=== PATIENT | female | born 1965 | race Caucasian/White ===

== ENCOUNTER 2021-01-04 12:31 | Emergency (ER) | payer OTHER ==
[~2021-01-04] VITALS: Ht 167.6 cm; Wt 50.7 kg
[2021-01-04 12:55] VITALS: BP 111/71
[2021-01-04] MEDS ORDERED: AZIT250T6 PO (13:27)
--- NOTE | 2021-01-04 13:28 | PHYS DOC ---
Past History Past Surgical History: Other Additional Past Surgical Histo: foot surgery Alcohol Use: None General Adult EDM: Chief Complaint: FINGER INJURY HPI: HPI: Patient is a 55 year old female who presents with right finger swelling after being scratched by a cat yesterday. Scratch was over the PIP of the right 2nd digit. Has gotten red and more tender over the course of the day. Swelling is primarily over the dorsal surface of the hand. No swelling along the flexor anthony faces. She has some mild pain with range of motion, but is able to flex and extend her finger fully. Cat is up-to-date on shots. Review of Systems: Review of Systems: Constitutional: Denies fever or chills Eyes: Denies change in visual acuity HENT: Denies nasal congestion or sore throat Respiratory: Denies cough or shortness of breath Cardiovascular: Denies chest pain or edema GI: Denies abdominal pain, nausea, vomiting, bloody stools or diarrhea : Denies dysuria Musculoskeletal: Denies back pain or joint pain Integument: Rash over 2nd finger on right hand Neurologic: Denies headache, focal weakness or sensory changes Endocrine: Denies polyuria or polydipsia Lymphatic: Denies swollen glands Psychiatric: Denies depression or anxiety Allergies: Allergies: Allergies Coded Allergies Type Severity Reaction Last Updated Verified Penicillins Allergy Unknown 01/04/21 Yes Physical Exam: PE: Constitutional: Well developed, well nourished, no acute distress, non-toxic appearance. [] HENT: Normocephalic, atraumatic, Eyes conjunctiva normal, no discharge. [] Neck: Normal range of motion, no tenderness, supple, no stridor. [] Cardiovascular:Heart rate regular rhythm, no murmur [] Lungs & Thorax: Normal work of breathing Skin: Right 2nd finger with some mild swelling, erythema, and tenderness over the dorsal aspect of the PIP. No swelling over the flexor tendons. Normal range of motion through full flexion/extension of the finger. Good distal cap refill. Small scratches over the dorsal MCP, and over the distal volar wrist. Extremities: No tenderness, no cyanosis, no clubbing, ROM intact, no edema. [] Neurologic: Alert and oriented X 3, normal motor function, normal sensory function, no focal deficits noted. [] Psychologic: Affect normal, judgement normal, mood normal. [] Current Patient Data: Vital Signs: Vital Signs Date Time Temp Pulse Resp B/P (MAP) Pulse Ox O2 Delivery O2 Flow Rate FiO2 01/04/21 12:55 98.1 88 16 111/71 (84) 98 EKG: EKG: [] Radiology/Procedures: Radiology/Procedures: [] Heart Score: C/O Chest Pain: No Risk Factors: Risk Factors: DM, Current or recent (<one month) smoker, HTN, HLP, family history of CAD, obesity. Risk Scores: Score 0 - 3: 2.5% MACE over next 6 weeks - Discharge Home Score 4 - 6: 20.3% MACE over next 6 weeks - Admit for Clinical Observation Score 7 - 10: 72.7% MACE over next 6 weeks - Early Invasive Strategies Course & Med Decision Making: Course & Med Decision Making Pertinent Labs and Imaging studies reviewed. (See chart for details) Patient a 55-year-old female who presents with evidence of a dorsal finger cellulitis after a cat scratch. She is penicillin allergic. Will prescribe a 5-day course of azithromycin. No evidence of flexor tenosynovitis or abscess. tdap utd Dragon Disclaimer: Dragon Disclaimer: This electronic medical record was generated, in whole or in part, using a voice recognition dictation system. Departure Departure: Impression: Primary Impression: Cat scratch of right hand with infection Disposition: 01 HOME / SELF CARE / HOMELESS Condition: STABLE Referrals: GÓMEZ LAY DO, [facility] (PCP) Scripts Azithromycin (AZITHROMYCIN TABLET) 250 Mg Tablet 250 MG PO DAILY for ANTI-BIOTIC for 5 Days, #6 TAB 0 Refills Take 2 tabs on day 1, followed by 1 tab daily. Please finish all. Prov: ROQUE CAMPOS MD 01/04/21 ROQUE CAMPOS MD Jan 04, 2021 13:28
== END 2021-01-04 13:35 | disposition home or self-care (01) ==
LOC: ER 12:31
DX: S60.511A Abrasion of right hand, initial encounter (principal); Z88.0 Allergy status to penicillin; W55.03XA Scratched by cat, initial encounter; Y93.89 Activity, other specified; Y92.89 Other specified places as the place of occurrence of the external cause; Y99.8 Other external cause status
CPT/HCPCS: 99283-25

== ENCOUNTER 2021-02-13 13:58 | Emergency (ER) | payer OTHER ==
[~2021-02-13] VITALS: Ht 167.6 cm; Wt 49.2 kg
[~2021-02-13 13:58] MED LIST: AZIT250T6 PO
[2021-02-13] MEDS ORDERED: NEOMY/BACITR/POLYMYXIN OINT PACKET. TP ONE (14:15)
[2021-02-13] MEDS ORDERED: [UNRECOGNIZED DRUG - CODE] PO (14:25)
--- NOTE | 2021-02-13 14:25 | PHYS DOC ---
Past History Past Surgical History: Other Additional Past Surgical Histo: foot surgery Alcohol Use: None General Adult EDM: Chief Complaint: HAND PROBLEM HPI: HPI: Patient is a 55-year-old female presenting with a cat bite to her right hand that occurred around 10 AM today. 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 She reports that her last tetanus shot was within the last 5 years. She reports a throbbing pain in her right hand around her thumb that does not radiate, along with some swelling. She reports she is able to move all her fingers without difficulty. Review of Systems: Review of Systems: Constitutional: Denies fever or chills Eyes: Denies redness or eye pain HENT: Denies nasal congestion or sore throat Respiratory: Denies cough or shortness of breath Cardiovascular: Denies chest pain or palpitations GI: Denies abdominal pain, nausea, or vomiting : Denies dysuria or hematuria Musculoskeletal: Denies back pain or joint pain Integument: Denies rash or skin lesions Neurologic: Denies headache, focal weakness or sensory changes Complete systems were reviewed and found to be within normal limits, except as documented in this note. Current Medications: Current Meds: Current Medications Medications (Trade) Dose Ordered Sig/Donovan Start Time Stop Time Status Last Admin Dose Admin Neomycin/ Polymyxin/ Bacitracin (Triple Antibiotic Ointment) 1 pkt 1X ONCE 02/13/21 14:15 02/13/21 14:16 DC 02/13/21 14:15 1 PKT Allergies: Allergies: Allergies Coded Allergies Type Severity Reaction Last Updated Verified Penicillins Allergy Unknown Hives 02/13/21 Yes Physical Exam: PE: Constitutional: Well developed, well nourished, no acute distress, non-toxic appearance HENT: Normocephalic, atraumatic Eyes: PERRL, EOMI, conjunctiva normal, no discharge Neck: Normal range of motion, no tenderness, supple Lungs & Thorax: No respiratory distress, equal chest rise and fall Abdomen: Soft, no tenderness Skin: Warm, dry, no erythema, no rash Back: No tenderness, no CVA tenderness Extremities: 3-4 skin punctures over 1st metacarpal on right side. Some swelling, erythema, and tenderness over this area. ROM intact b/l. Neurovascular intact. No drainage from puncture wounds noted. Neurologic: Alert and oriented X 3, normal motor function, normal sensory f unction, no focal deficits noted Psychologic: Affect normal, judgment normal Heart Score: C/O Chest Pain: No Course & Med Decision Making: Course & Med Decision Making Patient is a 55-year-old female presenting with a cat bite to her right hand. Cat is up-to-date on rabies vaccinations and the patient is up-to-date on tetanus. Wound care was performed and antibiotic gel was applied to the area. Will provide prescription for moxifloxacin for course of 7 to 10 days due to penicillin allergy. Patient stable for discharge with outpatient follow-up with PCP. Discussed findings and plan with patient, who acknowledges understanding and agreement. Marcelinoon Disclaimer: Griffin Disclaimer: This electronic medical record was generated, in whole or in part, using a voice recognition dictation system. Departure Departure: Impression: Primary Impression: Cat bite of right hand Qualified Codes: S61.451A - Open bite of right hand, initial encounter; W55.01XA - Bitten by cat, initial encounter Disposition: HOME / SELF CARE / HOMELESS Condition: STABLE Referrals: GÓMEZ LAY DO, [facility] (PCP) Patient Instructions: Animal Bite, [id number] Additional Instructions: Do not soak your wound. You may shower. Clean wound daily with soap and water. Change dressing 2 times daily. Use over the counter antibiotic ointment with each dressing change. Scripts Moxifloxacin Hcl (MOXIFLOXACIN HCL) 400 Mg Tablet 400 MG PO DAILY for Cat Bite for 7 Days, #7 TAB Prov: SOWMYA MAS DO 02/13/21 SOWMYA MAS DO Feb 13, 2021 14:25
[2021-02-13 14:35] VITALS: BP 107/64
== END 2021-02-13 14:36 | disposition home or self-care (01) ==
LOC: ER 13:58
DX: S61.031A Puncture wound without foreign body of right thumb without damage to nail, initial encounter (principal); Z88.0 Allergy status to penicillin; W55.01XA Bitten by cat, initial encounter; Y93.89 Activity, other specified; Y92.89 Other specified places as the place of occurrence of the external cause; Y99.8 Other external cause status
CPT/HCPCS: 99283

== ENCOUNTER 2021-05-28 08:46 | Emergency (ER) | payer OTHER ==
[~2021-05-28] VITALS: Ht 167.6 cm; Wt 49.2 kg
[~2021-05-28 08:46] MED LIST changes: +[UNRECOGNIZED DRUG - CODE] PO
[2021-05-28 09:03] VITALS: BP 117/77
[2021-05-28] MEDS ORDERED: [UNRECOGNIZED DRUG - CODE] PO (09:45)
--- NOTE | 2021-05-28 09:45 | PHYS DOC ---
Past History Past Medical History: No Pertinent History Past Surgical History: Other Additional Past Surgical Histo: foot surgery Smoking: Cigarettes Alcohol Use: None Drug Use: None General Adult EDM: Chief Complaint: ANIMAL BITE HPI: HPI: Patient is a 55 year old female who presents with cat bite over the MCP joint of digit 2 on the left hand. 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 After the injury, she states she washed it thoroughly with soap and water and placed antibiotic ointment on it. Today, it is red and somewhat swollen. All of the animals there are up-to-date on vaccinations. Patient has no other complaints at this time. Review of Systems: Review of Systems: ROS negative or noncontributory except as mentioned in HPI. Allergies: Allergies: Allergies Coded Allergies Type Severity Reaction Last Updated Verified Penicillins Allergy Unknown Hives 02/13/21 Yes Physical Exam: PE: Constitutional: Well developed, well nourished, no acute distress, non-toxic appearance. HENT: Normocephalic, atraumatic, bilateral external ears normal, nose normal. Eyes: EOMI, conjunctiva normal, no discharge. Neck: Normal range of motion, no stridor. Skin: Multiple scabbed abrasions and puncture wounds noted on both hands, left digit 2 MCP joint erythematous and mildly swollen. Skin otherwise warm, dry, no rash. 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 No tenderness, no cyanosis, no clubbing, ROM intact. Current Patient Data: Vital Signs: Vital Signs Date Time Temp Pulse Resp B/P (MAP) Pulse Ox O2 Delivery O2 Flow Rate FiO2 05/28/21 09:03 98.1 114 16 117/77 (90) 96 Room Air Patient hemodynamically stable on d/c. Radiology/Procedures: Radiology/Procedures: PROCEDURE: HAND LEFT 3V 3 views left hand 05/28/2021 9:24 AM Indication: Reason: cat bite / Comparison: None Findings: There is no acute fracture or dislocation. Articular surfaces are uninterupted and smooth. Soft tissues are unremarkable. No radiopaque foreign body is identified. Impression: No evidence of acute osseous abnormality. Electronically signed by: Brent Marroquin MD (05/28/2021 9:40 AM) [id number] Heart Score: C/O Chest Pain: No Course & Med Decision Making: Course & Med Decision Making Pertinent Labs and Imaging studies reviewed. (See chart for details) Patient is an otherwise healthy 55-year-old female who presents emergency department today with a cat bite that she sustained last night. Patient will be started on p.o. antibiotic treatment and instructed to follow-up in 2 days for wound check. Return precautions provided. Patient understands and is agreeable to discharge plan. Patient hemodynamically stable on d/c. Dragon Disclaimer: Dragon Disclaimer: This electronic medical record was generated, in whole or in part, using a voice recognition dictation system. Departure Departure: Impression: Primary Impression: Cat bite of left hand Qualified Codes: S61.452A - Open bite of left hand, initial encounter; W 55.01XA - Bitten by cat, initial encounter Disposition: HOME / SELF CARE / HOMELESS Condition: STABLE Referrals: GÓMEZ LAY DO, [facility] (PCP) Patient Instructions: Animal Bite, [id number] Additional Instructions: EMERGENCY DEPARTMENT GENERAL DISCHARGE INSTRUCTIONS Thank you for coming to [facility] (ED) today and trusting us with you care. We trust that you had a positive experience in our Emergency Department. If you wish to speak to the department management, you may call the director at [phone]. YOUR FOLLOW UP INSTRUCTIONS ARE FOLLOWS: 1. Follow up with your primary care doctor in 2 days for wound check. If you do not have a primary doctor, please ask for a resource list of physicians or clinics that may be able to assist you with follow up care. 2. The emergency provider has interpreted your imaging studies, if any were ordered. The radiology financial reporting specialist also reviewed them. If there is a change in the findings, you will be notified in 48 hours when at all possible. 3. If a lab test or culture has been done, your results will be reviewed and you will be notified if you need a change in treatment. 4. Follow instructions verbalized to you and refer to the printouts if needed. ADDITIONAL INSTRUCTIONS AND INFORMATION: 1. Your care today has been supervised by a physician who is specially trained in emergency care. Many problems require more than one evaluation for a complete diagnosis and treatment. We recommend that you schedule your follow up appointment as recommended to ensure complete treatment of you illness or injury. If you are unable to obtain follow up care and continue to have a pro blem, or if your condition worsens, we recommend that you return to the ED. 2. We are not able to safely determine your condition over the phone nor are we able to give sound medical advice over the phone. For these safety reasons, if you call for medical advice we will ask you to come to the ED for further evaluation. 3. If you have any questions regarding these discharge instructions please call the ED at [phone]. SAFETY INFORMATION: In the interest of safety, wellness, and injury prevention; we encourage you to wear your seat belt, if you smoke; quite smoking, and we encourage family to use a protective helmet for bicycling and other sporting events that present an increased risk for head injury. IF YOUR SYMPTOMS WORSEN OR NEW SYMPTOMS DEVELOP, OR YOU HAVE CONCERNS ABOUT YOUR CONDITION; OR IF YOUR CONDITION WORSENS WHILE YOU ARE WAITING FOR YOUR FOLLOW UP APPOINTMENT; EITHER CONTACT YOUR PRIMARY CARE DOCTOR, THE PHYSICIAN WHOSE NAME AND NUMBER YOU WERE GIVEN, OR RETURN TO THE ED IMMEDIATELY. Scripts Moxifloxacin Hcl (MOXIFLOXACIN HCL) 400 Mg Tablet 400 MG PO DAILY for cat bite for 7 Days, #7 TAB Prov: DINA ANTONY 05/28/21 DINA ANTONY May 28, 2021 09:45
== END 2021-05-28 09:51 | disposition home or self-care (01) ==
LOC: ER 08:46
DX: S61.231A Puncture wound without foreign body of left index finger without damage to nail, initial encounter (principal); S61.431A Puncture wound without foreign body of right hand, initial encounter; F17.210 Nicotine dependence, cigarettes, uncomplicated; Z88.0 Allergy status to penicillin; W55.01XA Bitten by cat, initial encounter; Y93.89 Activity, other specified; Y92.89 Other specified places as the place of occurrence of the external cause; Y99.8 Other external cause status
CPT/HCPCS: 73130; 99283